=== PATIENT | male | born 1945 | race Caucasian/White ===

== ENCOUNTER 2018-03-07 06:13 | Observation (INO) | payer OTHER ==
--- NOTE | 2018-03-06 11:12 | Diagnostic Imaging Report ---
PROCEDURE: Frontal and lateral views of the chest. COMPARISON: Chest radiograph 02/11/2009. INDICATIONS: PRE-OPERATIVE CHEST X-RAY FOR LEFT KNEE SURGERY FINDINGS: Lines/tubes: None. Lungs: There is no evidence of pneumonia or pulmonary edema. Nodular opacity projects over the left lung apex. Pleura: There is no pleural effusion or pneumothorax. Heart and mediastinum: The cardiomediastinal silhouette is unremarkable. Bones: No acute bony abnormality. IMPRESSION: No evidence of pneumonia or pulmonary edema. Nodular opacity projects over the left lung apex. This may reflect superimposed ribs, however lung nodule cannot be excluded. A chest CT is suggested for further evaluation. Dictated by: DAHIANA ANDERSON M.D. on 03/06/2018 at 11:18 Electronically approved by: DAHIANA ANDERSON M.D. on 03/06/2018 at 11:18
[2018-03-06 11:21] LABS: BASOPHILS % 0.5 % (0.0-1.0); EOSINOPHILS # (AUTO) 0.4 (0.0-0.4); EOSINOPHILS % 5.8 % (0.0-6.0); HEMATOCRIT 40.9 % (38.2-49.6); HEMOGLOBIN 14.5 g/dL (14.0-18.0); LYMPHOCYTES # (AUTO) 1.7 (1.0-3.2); LYMPHOCYTES % 27.3 % (18.0-39.1); MEAN CORPUSCULAR HEMOGLOBIN 32.4 pg (28-32); MEAN CORPUSCULAR HGB CONC 35.5 g/dL (31-35); MEAN CORPUSCULAR VOLUME 91.5 fL (81-99); MONOCYTES # (AUTO) 0.6 (0.2-0.8); MONOCYTES % 9.4 % (4.4-11.3); NEUTROPHILS # (AUTO) 3.5 (2.1-6.9); NEUTROPHILS % 56.7 % (38.7-80.0); PLATELET COUNT 151 x10e3/uL (140-360); RED BLOOD COUNT 4.47 x10e6/uL (4.3-5.7)
[~2018-03-07] VITALS: Ht 175.3 cm; Wt 88.5 kg
[~2018-03-07 06:13] MED LIST: ELIQUIS PO; FLOMAX0.4 MG PO; MELATONIN3 M1 PO; OMEPRAZOLE40 MG PO; PROZAC20 MG PO; UNKNOWN ANTIBIOTIC PO; ZOLPIDEM TARTRA10 MG PO
[2018-03-07] MEDS ORDERED: CELECOXIB 200 MG CAP ONE (06:25)
[2018-03-07] MEDS ORDERED: DEXAMETHASONE SOD PHOS 10 MG/1 ML VIAL ONE (06:25)
[2018-03-07] MEDS ORDERED: GABAPENTIN 300 MG CAP ONE (06:26)
[2018-03-07] MEDS ORDERED: VANCOMYCIN 1GM/NS 250 ML 250 ML ONE (06:26)
[2018-03-07] MEDS ORDERED: ROPIVACAINE 246.25 MG, EPINEPHRINE HCL 1:1000 0.5 MG, CLONIDINE HCL 0.08 MG, KETOROLAC ... INJ ONE ×5 (07:30)
[2018-03-07] MEDS ORDERED: TRANEXAMIC ACID 1,000 MG/10 ML ML ONE (08:13)
[2018-03-07] MEDS ORDERED: MUPIROCIN 2% OINT 22 GM TUBE ONE (08:13)
[2018-03-07] MEDS ORDERED: BACITRACIN 50,000 UNIT VIAL ONE (08:13)
[2018-03-07] MEDS ORDERED: ZOLPIDEM TARTRATE 5 MG TAB PO PRN (10:30)
[2018-03-07] MEDS ORDERED: DIPHENHYDRAMINE HCL INJ 50 MG/ML VIAL IM/IV PRN (10:30)
[2018-03-07] MEDS ORDERED: KETOROLAC TROMETHAMINE 30 MG/ML VIAL IV PRN (10:30)
[2018-03-07] MEDS ORDERED: HYDROCODONE/APAP 5MG-325MG TAB PO PRN (10:30)
[2018-03-07] MEDS ORDERED: DOCUSATE SODIUM 100 MG CAP PO PRN (10:30)
[2018-03-07] MEDS ORDERED: ONDANSETRON HCL INJ 2 MG/ML VIAL IV PRN (10:30)
[2018-03-07] MEDS ORDERED: ACETAMINOPHEN 650 MG SUPP PR PRN (10:30)
[2018-03-07] MEDS ORDERED: PROMETHAZINE HCL (IM) 25 MG/ML VIAL INJ PRN (10:30)
[2018-03-07] MEDS ORDERED: FENTANYL CITRATE/PF 100MCG/2 ML INJ ONE ×2 (11:01→13:57)
--- NOTE | 2018-03-07 11:15 | Operative Report ---
DATE OF PROCEDURE: March 07, 2018 DIAGRAMMER: Luis Dick PA-C The patient was brought to the operating room for induction of anesthesia. Throughout this case, my PA's assistance was necessary for retraction of soft tissue and positioning of the extremity. This allows for efficient and technically successful execution of the operation and is considered medically necessary. PREOPERATIVE DIAGNOSIS: Osteoarthritis, left knee. POSTOPERATIVE DIAGNOSIS: Osteoarthritis, left knee. PROCEDURE: Left total knee arthroplasty. INDICATIONS: The patient is a 72-year-old gentleman who has end-stage arthritis of his left knee. He has failed conservative management and would like to proceed with a left knee replacement. The risks and benefits of the procedure have been discussed. He states he understands and wishes to proceed. DESCRIPTION OF PROCEDURE: The patient was brought to the operating room and placed under general anesthetic. He received prophylactic antibiotics, a regional block and transexamic acid in the holding area. His left lower extremity was prepped and draped in a sterile manner. A preoperative time out was performed. The extremity was exsanguinated, and a proximal tourniquet was inflated to 300 mmHg. An anterior approach with a medial parapatellar arthrotomy was performed. Clear synovial fluid was removed from the joint. Soft-tissue releases were performed to bring the knee up into flexion with the patella everted. The cruciate ligaments were sacrificed. A [employer]ie II posterior stabilized knee system was used throughout the case. Meniscal remnants and marginal osteophytes were removed. An extramedullary cutting guide was used to resect the proximal tibia. The tibial baseplate was noted to be a size #5. The central fin punch was impacted, and attention was directed towards the distal femur. An intramedullary cutting guide was used to resect the distal femur in 6 degrees of valgus and rotation referencing off of the epicondylar axis, Shahbaz's line and posterior condyles. The femoral component was also noted to be a size #5. The anterior and posterior cuts were made. Trial reductions were performed. A 9-mm ultracongruent tibial insert provided optimal soft-tissue balancing in full extension and 90 degrees of flexion. The patella was severely worn. The patella was resurfaced with a 32-mm x 7.5-mm patellar button. The thickness was checked before and after and was right around 21 mm. Patellar tracking was noted to be concentric. The trial implants were then all removed. A 100-mL premixed pericapsular SAMANTHA injection was placed into the surrounding soft tissue. The knee was thoroughly irrigated with a shower-tip pulsatile lavage. The components were then cemented into place using a single mix of Palacos cement preloaded with antibiotics. Care was taken to remove extravasated cement. The wound was further irrigated while the cement cured. The arthrotomy was then closed with interrupted #1 Ethibond stitches. The knee was put through flexion and extension to ensure a secure closure. The skin was then closed with subcuticular Vicryl and sandy. A sterile Aquacel dressing was applied. The patient was extubated and transported to the recovery room in stable condition. Estimated blood loss was minimal. All needle and sponge counts were correct. Job#: [id number]
[2018-03-07] MEDS ORDERED: MORPHINE SULFATE 2 MG/ML SYR ONE (11:26)
--- NOTE | 2018-03-07 12:30 | Diagnostic Imaging Report ---
PROCEDURE: X-RAY LEFT KNEE, ONE OR TWO VIEWS COMPARISON: None. INDICATIONS:POST LEFT KNEE SURGERY FINDINGS: See conclusion. CONCLUSION: Status post total left knee arthroplasty with patellar resurfacing. There is surrounding soft tissue swelling, air and sandy consistent with recent surgery. No evidence of acute fracture or malalignment. The hardware appears intact. Dictated by: DAHIANA ANDERSON M.D. on 03/07/2018 at 12:37 Electronically approved by: DAHIANA ANDERSON M.D. on 03/07/2018 at 12:37
[2018-03-07] MEDS ORDERED: LIDOCAINE 2% /EPINEPHRINE 20 ML SDV INJ ONE (13:46)
[2018-03-07] MEDS ORDERED: ROPIVACAINE 0.5% 5 MG/ML 30 ML SDV ONE (13:46)
[2018-03-07] MEDS ORDERED: MIDAZOLAM HCL 2 MG/2 ML VIAL ONE (13:57)
[2018-03-07 16:27] VITALS: BP 105/60
[2018-03-07] MEDS: ASPIRIN 325 MG TAB PO SCH (17:10)
[2018-03-07] MEDS: ACETAMINOPHEN 1000 MG/100 ML IV SCH (17:10)
[2018-03-07] MEDS: CELECOXIB 200 MG CAP PO SCH (17:10)
[2018-03-07] MEDS: SODIUM CHLORIDE 0.9% 1000ML 1,000 ML IV SCH ×2 (17:21→20:26)
[2018-03-07 17:54] VITALS: BP 105/60
[2018-03-07] MEDS: VANCOMYCIN 1GM/NS 250 ML 250 ML IV SCH (18:02)
[2018-03-07] MEDS ORDERED: ONDANSETRON HCL INJ 2 MG/ML VIAL ONE (18:10)
[2018-03-07] MEDS ORDERED: SEVOFLURANE INHAL SOLN 250 ML PEN BTL ONE (18:10)
[2018-03-07] MEDS ORDERED: EPHEDRINE SULFATE INJ 50 MG/10 ML SYR ONE (18:10)
[2018-03-07] MEDS ORDERED: LIDOCAINE HCL 2% LOCAL INJ 5 ML SDV VIAL INJ ONE (18:10)
[2018-03-07] MEDS ORDERED: KETOROLAC TROMETHAMINE 30 MG/ML VIAL ONE (18:10)
[2018-03-07] MEDS ORDERED: PROPOFOL IV EMULSION 10 MG/ML 20 ML VIAL ONE (18:10)
[2018-03-07] MEDS ORDERED: DEXAMETHASONE SOD PHOS INJ 4 MG/ML VIAL ONE (18:10)
[2018-03-07 20:00] VITALS: BP 109/64
[2018-03-08] VITALS: BP 108/56
[2018-03-08] MEDS: ACETAMINOPHEN 1000 MG/100 ML IV SCH ×2 (00:30→06:12)
[2018-03-08 04:00] VITALS: BP 105/56
[2018-03-08 05:56] LABS: HEMATOCRIT 35.3 % (38.2-49.6); HEMOGLOBIN 12.4 g/dL (14.0-18.0)
[2018-03-08] MEDS: SODIUM CHLORIDE 0.9% 1000ML 1,000 ML IV SCH (06:26)
[2018-03-08] MEDS: VANCOMYCIN 1GM/NS 250 ML 250 ML IV SCH (06:35)
[2018-03-08] MEDS: HYDROCODONE/APAP 7.5MG-325MG 1 EA TAB PO PRN ×3 (07:15→13:40)
[2018-03-08 08:13] VITALS: BP 117/58
[2018-03-08 08:26] VITALS: BP 117/58
[2018-03-08] MEDS: CELECOXIB 200 MG CAP PO SCH (08:26)
[2018-03-08] MEDS: ASPIRIN 325 MG TAB PO SCH (08:26)
[2018-03-08] MEDS ORDERED: FLUOXETINE HCL 20 MG CAP PO SCH ×2 (09:00)
[2018-03-08] MEDS ORDERED: NORCO 7.5-3251 EACH PO (10:00)
[2018-03-08] MEDS ORDERED: ACETAMINOPHEN 1000 MG/100 ML IV PRN (10:30)
[2018-03-08 11:58] VITALS: BP 100/59
== END 2018-03-08 14:20 | disposition home health service (06) ==
LOC: OR 06:13 → PACU V 10:28 → MED/SURG 14:59
PROVIDERS: ADMIT Specialist; ATTEND Specialist
DX: M17.12 Unilateral primary osteoarthritis, left knee (principal); Z82.3 Family history of stroke; Z88.0 Allergy status to penicillin; K21.9 Gastro-esophageal reflux disease without esophagitis; Z90.49 Acquired absence of other specified parts of digestive tract; I48.1 Persistent atrial fibrillation; Z79.01 Long term (current) use of anticoagulants; I10 Essential (primary) hypertension
CPT/HCPCS: 27447; 36415 ×2; 71046; 73560; 85014; 85018; 85025; 86850; 86900; 86920; 93005; 97116 ×2; 97139; 97161; 97530; G0378 ×2; G8978; G8979; J0171; J1100 ×2; J1885; J2001 ×2; J2250; J2270; J2405; J2795; J3370 ×2; J7030

== ENCOUNTER → 2018-04-18 | Day surgery (SDC) | payer OTHER ==
[2018-04-14 11:58] LABS: BASOPHILS % 0.3 % (0.0-1.0); EOSINOPHILS # (AUTO) 0.4 (0.0-0.4); EOSINOPHILS % 5.1 % (0.0-6.0); HEMATOCRIT 36.1 % (38.2-49.6); HEMOGLOBIN 12.5 g/dL (14.0-18.0); LYMPHOCYTES # (AUTO) 1.6 (1.0-3.2); LYMPHOCYTES % 20.6 % (18.0-39.1); MEAN CORPUSCULAR HEMOGLOBIN 32.6 pg (28-32); MEAN CORPUSCULAR HGB CONC 34.6 g/dL (31-35); MONOCYTES # (AUTO) 0.7 (0.2-0.8); MONOCYTES % 8.9 % (4.4-11.3); NEUTROPHILS # (AUTO) 4.9 (2.1-6.9); NEUTROPHILS % 64.8 % (38.7-80.0); PLATELET COUNT 165 x10e3/uL (140-360); RED BLOOD COUNT 3.84 x10e6/uL (4.3-5.7); RED CELL DISTRIBUTION WIDTH 11.8 % (11.7-14.4)
[~2018-04-18] MED LIST changes: +ACETAMINOPHEN PO; +FENTANYL CITRATE/PF 100MCG/2 ML INJ ONE; +HYDROMORPHONE 2MG/ML 2 MG/ML ML ONE; +LIDOCAINE HCL 2% LOCAL INJ 5 ML SDV VIAL INJ ONE; +MIDAZOLAM HCL 2 MG/2 ML VIAL ONE; +NORCO 7.5-3251 EACH PO; +ONDANSETRON HCL INJ 2 MG/ML VIAL ONE; +PROPOFOL IV EMULSION 10 MG/ML 20 ML VIAL ONE; +SEVOFLURANE INHAL SOLN 250 ML PEN BTL ONE
[2018-04-18 13:50] VITALS: BP 131/72
--- NOTE | 2018-04-18 14:54 | Operative Report ---
DATE OF PROCEDURE: April 18, 2018 PREOPERATIVE DIAGNOSIS: Early complication pertaining to left total knee arthroplasty. POSTOPERATIVE DIAGNOSIS: Early complication pertaining to left total knee arthroplasty. PROCEDURE: Manipulation under anesthesia, left total knee arthroplasty. INDICATIONS: The patient is a 72-year-old gentleman who is approximately 3 weeks status post a left total knee replacement. He is not progressing appropriately with range of motion exercises. We have discussed the findings and options and recommend a manipulation under anesthesia. The importance of his continued physical therapy after the manipulation has been stressed. He states he understands and wishes to proceed. DESCRIPTION OF PROCEDURE: The patient was brought to the operating room and placed under general anesthetic. His left lower extremity was examined under anesthesia. Range of motion was from -3 degrees to 60 degrees. A manipulation was performed. There was palpable release of intraarticular adhesions. The knee was easily manipulated to demonstrate 120 degrees of flexion. An intraoperative photograph was taken. The patient still lacked full terminal extension. He was extubated and transported to the recovery room in stable condition. There was no blood loss or needle or sponge count. Job#: [id number]
== END | disposition home or self-care (01) ==
LOC: OR 11:25
PROVIDERS: ATTEND Specialist
DX: T84.89XA Other specified complication of internal orthopedic prosthetic devices, implants and grafts, initial encounter (principal); F32.9 Major depressive disorder, single episode, unspecified; K21.9 Gastro-esophageal reflux disease without esophagitis; N40.0 Benign prostatic hyperplasia without lower urinary tract symptoms; Y83.8 Other surgical procedures as the cause of abnormal reaction of the patient, or of later complication, without mention of misadventure at the time of the procedure; Z88.0 Allergy status to penicillin; Z96.652 Presence of left artificial knee joint; Z01.812 Encounter for preprocedural laboratory examination; Z79.02 Long term (current) use of antithrombotics/antiplatelets
CPT/HCPCS: 27570; 36415; 85025; J1170; J2001; J2250; J2405